=== PATIENT | male | born 1985 | race Caucasian/White ===

== ENCOUNTER 2023-12-05 11:41 | Day surgery (SDC) | payer OTHER, MEDICAID, SELFPAY ==
[2023-11-28 15:11] VITALS: BMI 37.7
[2023-12-05] VITALS (10 sets, daily range): BP systolic 109–151; BP diastolic 60–91; PULSE 73–99; RESP 13–20; TEMP 36.3–36.6; O2SAT 94–98; BMI 39.3
--- NOTE | 2023-12-05 08:27 | PM.PREOP ---
Pre-operative Note Interval Note History & Physical reviewed/Exam performed by Physician: Yes Changes to H&P: No
--- NOTE | 2023-12-05 08:29 | PM.HP.1 ---
History of Present Illness History of Present Illness Chief complaint: Right Arthrodesis Toe Narrative: 38 year old male has been suffering from severe pain to both heels and right toe. 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 Patient takes OTC NSAIDs with limited relief. Patient states the bumps on both heels have been there since his 20s, and they grew bigger over time. The right great toe numbness and pain continues to affect ambulation and work. Patient would like to proceed with surgical intervention for definitive treatment, so he could go back to work without interruption on a frequent basis due to ailment. Patient chews tobacco. Patient denies n/v/f/c/sob/cp. [facility] Medical History (Updated 11/28/23 @ 15:21 by Brittany Cartwright RN) History of COVID-19 Rascon's esophagus Bronchiectasis HTN (hypertension) Asthma Foot pain Surgical History (Updated 11/28/23 @ 15:17 by Brittany Cartwright RN) Hx of knee surgery Social History Smoking Status: Former smoker Meds Home Medications and Allergies Home Medications Medication Instructions Recorded Confirmed Type omeprazole 20 mg tablet,delayed 20 mg PO DAILY 11/28/23 11/28/23 History release Allergies Allergy/AdvReac Type Severity Reaction Status Date / Time iodine Allergy Unknown Unverified 12/05/23 08:28 Exam Skin Other: Right foot: moderate pinch callus to medial hallux. Neuro Other: Right lower limb: neurovascular intact. Extrem Other: Right lower extremity: limited 1st MTP ROM with severe pain and ankle dorsiflexion, severe pain with active plantarflexion against resistance and passive dorsiflexion of ankle, and severe bony prominence to posterior heel. Assessment & Plan Assessment & Plan narrative: Patient seen and evaluated. Surgical plan: right Achilles tendon secondary repair with allograft, right calcaneal ostectomy, right Dior gastrocnemius recession, and right 1st MTPJ fusion. Risks and benefits of the procedure discussed with all questions answered to patient's satisfaction. Reviewed potential complications that may include but not limited to the following: DVT, failure to resolve all symptoms, infection, nerve injury, bleeding, recurrence, or wound. Reviewed surgical technique and general aftercare protocols with attention to importance of post-op weight bearing status and tobacco cessation in relation to healing. All questions answered to patient's satisfaction with no guarantees made. Patient verbalized understanding and agreed with surgical plan. RTC for post-op. Time-Based Coding :: [TOTAL MINUTES] spent with patient and on the chart (including review of chart, obtaining history, exam, reviewing outside data, placing orders, documenting exam and treatment plan, and counseling patient) on [DATE].
[2023-12-05] MEDS: LACTATED RINGERS 1,000 ML 42 ML IV ×3 (12:43→17:42)
[2023-12-05] MEDS: ALBUTEROL/IPRATROPIUM 3 ML AMPUL INH (12:48)
--- NOTE | 2023-12-05 13:23 | SUR.PREOP ---
Time out done in room prior to nerve block procedure.
--- NOTE | 2023-12-05 13:34 | SUR.PREOP ---
Block start time [1321] . Monitoring initiated and maintained throughout procedure. Oxygen and medications given per anesthesiologist instructions. Patient remained stable throughout procedure, no adverse reactions noted. Block end time [1332].
[2023-12-05] MEDS: CEFAZOLIN VIAL 3 GM in SODIUM CHLORIDE 0.9% 100 ML IV ×2 (14:00→17:36)
--- NOTE | 2023-12-05 14:26 | SUR.OPER ---
Prone on padded OR bed, head in foam head support, gel chest rolls in malik shaped x4 roll, gel pad under knees, pillow under lower legs, right leg resting on a bump of blankets, toes free of pressure, arms secured on padded arm boards at <90 degrees abduction. Safety belt at thigh.
[2023-12-05] MEDS: BUPIVACAINE 0.5% (PF) 30 ML VIAL INJ (14:33)
[2023-12-05] MEDS: ONDANSETRON 4 MG/2 ML INJ IV (20:28)
[2023-12-05] MEDS: LACTATED RINGERS 1,000 ML 100 ML IV (20:45)
[2023-12-05] MEDS: hydrOXYzine 50 MG/ML INJ 25 MG IM (21:05)
[2023-12-05] MEDS: ACETAMINOPHEN IV 1,000 MG/100 ML VIAL 400 MG IV (21:13)
--- NOTE | 2023-12-05 21:47 | SUR.PHASEII ---
Spoke to Corie TEJADA regarding patient nausea and pain. See orders. Pt DC to home with mom. Able to get self in car, steady on foot. Nausea resolved. Tolerated jahaira clara and crackers.
--- NOTE | 2023-12-06 06:43 | P.OP_ITS ---
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 Right Leg Muscle Contracture 4. Right Hallux Rigidus Post-op diagnosis: same Procedure & Clinicians Procedure: 1. Right Rabia's Resection 2. Right Achilles Tendon Secondary Repair 3. Right Gastrocnemius Recession 4. Right First Metatarsophalangeal Joint Arthrodesis Same procedure as scheduled: No (As scheduled, with addition of CPT 70663 for Achilles Tendon Repair.) Surgeon: Dean Flores Click Yes if Unassisted: Yes Anesthesia Type: General, Peripheral nerve block and Local Operative Notes Findings: 1. Remarkable bony prominence at posterior calcaneus. 2. Significant Achilles tendon degeneration with calcium deposits. 3. Limited ankle dorsiflexion with knees extended. 4. Limited first metatarsophalangeal joint range of motion with end-feel. Closure Type: primary Specimen(s): none sent Applied: cast(s) Estimated Blood Loss (mL): 25 Blood products transfused: none Tourniquet time (min): 240 Procedure in detail: Patient was identified and brought into operating room via gurney and then transferred onto operating table. Regional block was performed in pre-op holding area. General anesthesia was administered in operating room. Patient was in prone position for the initial portion of the procedures. Thigh tourniquet was applied over well-padded surface, which was inflated to 300 mmHg for a total of 120 minutes for the initial procedures. Right lower extremity was prepped and draped in usual sterile fashion followed by official timeout with surgical team all in agreement. Attention was directed to right posterior heel, where prominent bone was palpated. A 4 cm linear incision was carried out using a #15 scalpel over midline of Achilles tendon towards insertion. Dissection was carried out in layers down to level of tendon, which was sharply reflected and detached from its insertion. Thickening, calcium deposits, and longitudinal tears were identified along the Achilles tendon, which were debulked, excised, and repaired using a #15 scalpel, a rongeur, and an 0 PDS respectively. Inflamed retrocalcaneal bursa was also identified and removed using a rongeur. An osteotome and a sagittal saw was used to excise the hypertrophic bone formation from posterior aspect of calcaneus, which was then resurfaced with a rasp. Following manufacture instructions, four bone anchors from [employer] SppedBridge w ere inserted and sutures were passed through the Achilles tendon to create reattachment in crisscross double-row fashion. Achilles tendon was augmented with AmnioFix using 3-0 vicryl. Surgical site was irrigated using copious saline and closed in layers 3-0 vicryl and 3-0 nylon. Attention was then directed to the lower leg. A 2 cm linear incision was made using # 15 scalpel medial to midline at surgical zone 3. Sharp and blunt dissection was carried out down to the level of tendon while care was taken to retract neurovascular structures. A transverse sectioning of the gastrocnemius aponeurosis was completed using # 15 scalpel with increased ankle dorsiflexion noted. Surgical site was irrigated using copious saline and closed from deep to superifical using 4-0 vicryl and 4-0 nylon. At this time, temporary sterile dressing was applied, and tourniquet was released for a total of 120 minutes. Patient was safely flipped onto a seprate operating table without incidence and secured. The surgical limb was then prepped and draped in the usual sterile fashion. Tourniquet was then raised to 275 mmHg. Attention was now directed to the right forefoot. A 4 cm linear incision was made on the dorsal first ray. Dissection was carried out in layers from skin down to bone and first metatarsophalangeal joint, which was reflected and released. A cup and cone reamer was used to prepare the joint, followed by fenestration of the prepared surface. Alignment of two bones were positioned and verified on fluoroscopy. Following manufacture instructions, the [employer] MaxForce plate was applied and fixated with screws. Cancellous bone chips were added to fusion site. An additional interfragmentary screw was inserted for additional compression. Surgical site was irrigated and closed from deep to steiner perficial using 2-0 vicryl, 3-0 vicryl, 3-0 nylon, and 4-0 nylon. Incision sites were washed and dried. Xeroform were applied to the proximal and distal incision sites respectively, followed by sterile dressing using gauze, abodminal pad, Kerlix, and cast padding. Posterior splint was molded using 5 inch OrthoGlass and secured with elastic bandages. Patient tolerated procedures without complication and was transferred to PACU with all vital signs stable. Complications: none Post-operative Condition: stable Disposition: same day surgery Plan for aftercare: NWB to surgical limb. Keep dressing clean, dry, and intact. Ice behind knee 15 minutes/hour. Elevate above heart on pillows. Take medications as directed. RTC as scheduled.
== END 2023-12-05 21:40 | disposition home or self-care (01) ==
PROVIDERS: Referring Provider Podiatrist Foot & Ankle Surgery; Visit Provider Podiatrist Foot & Ankle Surgery
PROC: (CPT 27654; principal; 2023-12-05 13:45)
DX: S86.011A Strain of right Achilles tendon, initial encounter (principal); M77.31 Calcaneal spur, right foot; M20.21 Hallux rigidus, right foot; M62.461 Contracture of muscle, right lower leg; G89.18 Other acute postprocedural pain
CPT/HCPCS: 27654; 28750; 28118; 27687; 64450; C1713; J0136; J0330; J0690; J1170; J1885; J2405; J2704; J3410